=== PATIENT | male | born 1975 | race Caucasian/White ===

== ENCOUNTER 2018-04-30 09:48 | Emergency (ER) | payer SELFPAY ==
[2018-04-30 10:12] VITALS: RESP 20; TEMP 97.6
[2018-04-30 10:21] LABS: BASOPHILS % (AUTO) 1 % (0-3); EOSINOPHILS % (AUTO) 2 % (0-9); HEMATOCRIT 41 % (39-53); LYMPHOCYTES % (AUTO) 19.6 % (10-50); MEAN CORPUSCULAR HEMOGLOBIN 31.8 pg (27.0-32.0); MONOCYTES % (AUTO) 7.8 % (0-12); NEUTROPHILS % (AUTO) 69.5 % (37-80)
[2018-04-30 10:30] LABS: MEAN CORPUSCULAR VOLUME 99 fL (80-100)
[2018-04-30 10:35] LABS: APPEARANCE,URINE Clear; BILIRUBIN,URINE NEGATIVE (NEGATIVE); COLOR,URINE Yellow; GLUCOSE, URINE (UA) NEGATIVE (NEGATIVE); KETONES,URINE NEGATIVE (NEGATIVE); LEUKOCYTE ESTERASE ,URINE NEGATIVE (NEGATIVE); NITRATE,URINE NEGATIVE (NEGATIVE); OCCULT BLOOD,URINE NEGATIVE (NEG-TRACE); PH,URINE 5.5; UROBILINOGEN,URINE 0.2 (0.2-1.0 EU)
[2018-04-30 10:41] LABS: ALBUMIN 3.5 gm/dl (3.4-5.0); ALKALINE PHOSPHATASE 56 IU/L (46-116); ALT 22 IU/L (14-63); AST 22 IU/L (15-37); BILIRUBIN,TOTAL 0.2 mg/dl (0.2-1.0); BLOOD UREA NITROGEN 12 mg/dl (7-18); CALCIUM 8.2 mg/dl (8.5-10.1); CARBON DIOXIDE 28.3 mEq/L (21-32); CHLORIDE 103 mMol/L (98-107); CREATININE 1.12 mg/dl (0.80-1.30); GLUCOSE 86 mg/dl (74-106); POTASSIUM 3.3 mMol/L (3.5-5.1); SALICYLATE < 2.8 mg/dl (2.8-30.0); SODIUM 140 mMol/L (136-145); TOTAL PROTEIN 6.5 gm/dl (6.4-8.2)
[2018-04-30 10:46] LABS: ACETAMINOPHEN < 2 ug/ml (10-30)
[2018-04-30 10:47] LABS: ALCOHOL 0.296 gm/dl (0.000-0.08)
[2018-04-30 10:50] LABS: BARBITUATES NEGATIVE (NEGATIVE); BENZODIAZEPINES NEGATIVE (NEGATIVE); CANNABINOL(THC) POSITIVE (NEGATIVE); METHADONE NEGATIVE (NEGATIVE); OPIATES(OPI) NEGATIVE (NEGATIVE); TRICYCLIC ANTIDEPRESSANTS NEGATIVE (NEGATIVE)
[2018-04-30 10:51] LABS: AMPHETAMINES POSITIVE (NEGATIVE); COCAINE(COC) POSITIVE (NEGATIVE); METHAMPHETAMINES POSITIVE (NEGATIVE); OXYCODONE(OXY) NEGATIVE (NEGATIVE); PROPOXYPHENE(PPX) NEGATIVE (NEGATIVE)
[2018-04-30 10:56] LABS: BACTERIA NEGATIVE (< 1+); CRYSTALS NEGATIVE (0-3 AVE/HPF); EPITHELIAL CELLS 0-2 (SQUAMOUS); RBC,URINE NEG (0-3AV/HPF); WBC,URINE NEG (0-5AV/HPF)
[2018-04-30 13:24] VITALS: PULSE 86
[2018-04-30 13:25] VITALS: BP 117/79; O2SAT 98
== END 2018-04-30 13:16 | disposition short-term general hospital (02) | DRG 897 ==
LOC: ED 09:48
DX: F10.129 Alcohol abuse with intoxication, unspecified (principal); F10.10 Alcohol abuse, uncomplicated; F19.10 Other psychoactive substance abuse, uncomplicated; Y90.8 Blood alcohol level of 240 mg/100 ml or more
CPT/HCPCS: 36415; 80053; 80305; 80307; 81001; 85025; 99284